=== PATIENT | female | born 1995 | race American Indian/Alaskan Native ===

== ENCOUNTER 2016-07-13 23:10 | Inpatient (IN) | payer MEDICAID ==
[2016-07-13] MEDS ORDERED: LACTATED RINGERS 1,000 ML IV ONE (23:37)
[2016-07-14 00:18] LABS: Bacteria,Urine 1+ /HPF (Negative); Bilirubin,Urine NEG (Negative); Blood,Urine NEG (Negative); Ketones,Urine 20 mg/dL (Negative); Leukocyte Esterase,Urine TR (Negative); Mucus,Urine 1+ /HPF; Nitrite,Urine NEG (Negative); Protein,Urine <15 mg/dL mg/dL (Negative)
[2016-07-14] MEDS ORDERED: BRETHINE ONE (01:18)
[2016-07-14] MEDS ORDERED: BRETHINE SUB-Q ONE (01:20)
--- NOTE | 2016-07-14 01:33 | Event Note ---
Date: 07/14/16 20 yo , edc 08/19/16 presented to L&D with c/o of contractions. PNC with [facility]. Pt noted to have Mutiple anomalies ( see Prenatals). Pt states she was told that patient had 50/50 chance of survival, but she is requesting that full resuscitation be performed. Per our Oil Well Shooter our NICU is on diversion. I have attempted to arrange transport [facility] but they refused to accept patient stating that they do not have a pediatric ENT. I spoke with both the product support sales representative and the ER OB physician- DR Cedillo. I also spoke with DR Carrizales, our Oil Well Shooter and asked her to reach out to other NICU' s to see if one wiil be willing to care for this baby. If she can find a nicu willing to care for this baby I will contact the ob doctor vanstone machine operator to effect maternal transfer. If we are unable to arrange transport we will deliver at [facility].
[2016-07-14 02:09] LABS: Basophils % (Auto) 0.2 % (0.0-1.8); Hematocrit 27.3 % (30.3-42.9); Hemoglobin 8.7 gm/dl (10.1-14.3); Mean Corpuscular HGB Conc 32 % (30-34); Mean Corpuscular Volume 77 fl (79-97); Platelet Count 184 K/mm3 (140-440); Red Blood Count 3.56 M/mm3 (3.65-5.03); Red Cell Distribution Width 13.6 % (13.2-15.2); White Blood Count 10.9 K/mm3 (4.5-11.0)
[2016-07-14 02:13] LABS: Mean Corpuscular Hemoglobin 25 pg (28-32)
[2016-07-14] MEDS: LACTATED RINGERS 1,000 ML IV SCH ×2 (02:43→12:05)
--- NOTE | 2016-07-14 03:30 | History and Physical Report ---
History of Present Illness Date of examination: 07/14/16 Date of admission: 07/14/16 01:50 Chief complaint: pt presented with c/o of contractions. PNC at [facility] Past History Past Medical History: no pertinent history Past Surgical History: no surgical history Family/Genetic History: none Social history: no significant social history - Obstetrical History Expected Date of Delivery: 08/19/16 Actual Gestation: 34 Week(s) 6 Day(s) : 2 Para: 1 Number of Living Children: 1 Medications and Allergies Allergies Allergy/AdvReac Type Severity Reaction Status Date / Time No Known Allergies Allergy Verified 03/28/16 10:29 Home Medications Medication Instructions Recorded Confirmed Last Taken Type Tablet 1 tab PO DAILY 12/28/15 03/28/16 03/28/16 History Nitrofurantoin Reno/M-Cryst 100 mg PO Q12HR #14 capsule 03/28/16 Unknown Rx [Macrobid CAP] Promethazine [Phenergan TAB] 25 mg PO Q6HR PRN #20 tab 03/28/16 Unknown Rx metroNIDAZOLE [Flagyl] 500 mg PO Q12HR #14 tab 03/28/16 Unknown Rx Active Meds: Active Medications Lactated Ringer's (Lactated Ringers) 1,000 mls @ 125 mls/hr IV DIRECT JUANCHO Last Admin: 07/14/16 02:43 Dose: 125 mls/hr Review of Systems All systems: negative Gastrointestinal: abdominal pain - Vital Signs Vital signs: Vital Signs Pulse BP 77 127/66 07/13/16 23:24 07/13/16 23:24 Temp Pulse Resp BP Pulse Ox 98.0 F 97 H 18 127/66 98 07/13/16 23:30 07/14/16 03:21 07/13/16 23:30 07/13/16 23:30 07/14/16 03:21 - Physical Exam Breasts: Positive: deferred Cardiovascular: Regular rate, Normal S1, Normal S2 Abdomen: Positive: normal appearance, soft, normal bowel sounds. Negative: distention, tenderness Vulva: both: normal Vagina: Positive: normal moisture. Negative: discharge Cervix: Negative: lesion, discharge Uterus: Positive: normal size, normal contour Adnexa: both: normal Anus/Rectum: Positive: normal perianal skin, heme negative. Negative: rectal mass, hemorrhoids Extremities: Deep Tendon Reflex Grade: Normal +2 - Obstetrical FHR: category 2 Uterine Contraction Monitor Mode: External Cervical Dilatation: 4 Cervical Effacement Percentage: 100 station: -2 Uterine Contraction Pattern: Irregular Uterine Tone Measurement Phase: Resting Uterine Contraction Intensity: Mild Results Result Diagrams: 07/14/16 01:45 Abnormal lab results 07/14/16 Range/Units 01:45 RBC 3.56 L (3.65-5.03) M/mm3 Hgb 8.7 L (10.1-14.3) gm/dl Hct 27.3 L (30.3-42.9) % MCV 77 L (79-97) fl MCH 25 L (28-32) pg Reno % (Auto) 9.1 H (0.0-7.3) % Reno # 1.0 H (0.0-0.8) K/mm3 All other labs normal. Assessment and Plan iup at 34 5/7 weeks, early labor. Fetus with multiple anomalies including large bilateral dysplasic kidneys, oligo, occipital neck mass, peicardial effusion and cystic hygroma Plan- our nicu is on diversion. We are attempting to arrange maternal transport of patient. but thus far have been unsuccessful. [facility] refused to accept transport. I have ask our Nicu Dr MACIAS to attempt to find a Nicu that will be able to care for this infant. I have not yet received any follow up on this request.
[2016-07-14] MEDS ORDERED: COLACE PO PRN (08:06)
[2016-07-14] MEDS ORDERED: MAGNESIUM SULFATE 4GM/100ML 100 ML IV ONE (08:06)
[2016-07-14] MEDS ORDERED: ZOFRAN IV PRN (08:06)
[2016-07-14] MEDS ORDERED: TYLENOL PO PRN (08:06)
[2016-07-14] MEDS ORDERED: AMBIEN PO PRN (08:06)
[2016-07-14] MEDS ORDERED: MYLICON PO PRN (08:06)
[2016-07-14] MEDS ORDERED: SODIUM CHLORIDE FLUSH SYRINGE 10 ML IV PRN (08:06)
[2016-07-14] MEDS ORDERED: MAGNESIUM SULFATE 40GM/1000ML 1,000 ML IV SCH (09:00)
[2016-07-14] MEDS ORDERED: LACTATED RINGERS 1,000 ML IV SCH (09:00)
[2016-07-14] MEDS ORDERED: PRENATAL VITAMIN PO SCH (10:00)
--- NOTE | 2016-07-14 10:07 | Ultrasound Report ---
BIOPHYSICAL PROFILE: INDICATION: well being. COMPARISON: None similar. TECHNIQUE: Transabdominal ultrasound with Doppler interrogation. 2 - breathing movements 2 - movements 2 - posture and tone 0 - Qualitative amniotic fluid volume 6 - TOTAL SCORE OF POSSIBLE 8 Heart Rate (bpm) 138
--- NOTE | 2016-07-14 10:14 | Ultrasound Report ---
OB ULTRASOUND FOLLOWUP INDICATION: growth, ZOE, position. COMPARISON: None similar. TECHNIQUE: Transabdominal grayscale ultrasound with Doppler interrogation. Gestation: Raymond Position: Cephalic Amniotic Fluid: Decreased (< 7 cm) ZOE = 2.6 cm Heart Rate: 137 BPM BPD: 10.4 cm HC: 38.9 cm AC: 39.4 cm FL: 6.1 cm = 31 w 6 d HC/AC Ratio: 0.99 Cephalic Index: 89.7 Estimated Weight: 4607 grams Clinical age = 34 w 6 d EDC: 08/19/2016 US Gest. Age = 31 w 6 d EDC: 09/09/2016 NOTE: hydrocephalus and polycystic kidneys noted. CONCLUSION: Single, live intrauterine gestation with ultrasound estimated age of 31 weeks and 6 days and EDC of 09/09/2016, currently in cephalic lie with details, as above. Hydrocephalus and polycystic kidneys noted. Please also correlate clinically for approximately 3 weeks discrepancy with the stated clinical age. Thank you for the opportunity to participate in this patient's care.
--- NOTE | 2016-07-14 10:28 | Ultrasound Report ---
ULTRASOUND OB VELOCIMETRY UMBILICAL ARTERY: HISTORY: growth, ZOE, position. COMPARISON: None similar at this institution. FINDINGS: Transabdominal imaging with spectral Doppler interrogation. 3 separate segments of the cord were evaluated. heart rate measures 137 beats per minute. Free loop S/D ratio in the examined loops are 2, 1.81 and 2.05 with average S/D ratio = 1.95. Normal waveform. Flow pattern is persistent. Free loop RI in the examined loops are 0.5, 0.45 and 0.51 with average RI= 0.49. Normal waveform. Flow pattern is persistent. CONCLUSION: Normal and persistent spectral waveforms are demonstrated throughout. The S/D ratio average measures 1.95. The resistive index average measures 0.49. Thank you for the opportunity to participate in this patient's care.
--- NOTE | 2016-07-14 15:24 | Consultation ---
History of Present Illness Consult date: 07/14/16 Requesting physician: CASSI SCOTT Reason for consult: vulvar trauma (H) History of present illness: 20 y/o BF FAITH 08/19/16- presenting with contractions - Cervical Exam at 4 cm. Contractions now spaced out on Mg. Significant History - [facility] US done 04/02/17 showed multiple anomalies Large Bilat Polycystic Ovaries Oligohydramnios Encephalocele Pericardial Effusion Patient was counseled and explained very poor prognosis at that time and offered termination at that time and patient never followed up with [facility] since initial consult done on 04/02/17 Today's US 07/14/16 Oligo - ZOE at 2.6 cm EFW at 4607 Hydrocephalus Polycystic kidneys Quad Screen Done at OB's office - Negative Ob History 2009 Term No med ds, surg, CDD, STD or allergies Abd gravid NT Ext Nt no edema Vag - 4 cm per ob Past History Past Medical History: no pertinent history Past Surgical History: no surgical history Family/Genetic History: none - Obstetrical History : 2 Medications and Allergies Allergies Allergy/AdvReac Type Severity Reaction Status Date / Time No Known Allergies Allergy Verified 03/28/16 10:29 Home Medications Medication Instructions Recorded Confirmed Last Taken Type Tablet 1 tab PO DAILY 12/28/15 07/14/16 07/13/16 10:00 History 1 Nitrofurantoin [place]/M-Cryst 100 mg PO Q12HR #14 capsule 03/28/16 07/14/16 Unknown Rx [Macrobid CAP] Promethazine [Phenergan TAB] 25 mg PO Q6HR PRN #20 tab 03/28/16 07/14/16 Unknown Rx metroNIDAZOLE [Flagyl] 500 mg PO Q12HR #14 tab 03/28/16 07/14/16 Unknown Rx Active Meds: Active Medications Acetaminophen (Tylenol) 650 mg PO Q4H PRN PRN Reason: Pain MILD(1-3)/Fever >100.5/CALERO Docusate Sodium (Colace) 100 mg PO Q12H PRN PRN Reason: Constipation Lactated Ringer's (Lactated Ringers) 1,000 mls @ 125 mls/hr IV DIRECT JUANCHO Last Admin: 07/14/16 12:05 Dose: 125 mls/hr Lactated Ringer's (Lactated Ringers) 1,000 mls @ 125 mls/hr IV DIRECT JUANCHO Magnesium Sulfate (Magnesium Sulfate 40gm/1000ml) 1,000 mls @ 50 mls/hr IV DIRECT JUANCHO PRN Reason: 2 GM/HR Multivitamins/Iron/Calcium ( Vitamin) 1 each PO QDAY JUANCHO Last Admin: 07/14/16 12:47 Dose: 1 each Ondansetron HCl (Zofran) 4 mg IV Q6H PRN PRN Reason: Nausea And Vomiting Simethicone (Mylicon) 80 mg PO Q6H PRN PRN Reason: Gas pain Sodium Chloride (Sodium Chloride Flush Syringe 10 Ml) 10 ml IV PRN PRN PRN Reason: LINE FLUSH Zolpidem Tartrate (Ambien) 10 mg PO ONCE PRN PRN Reason: Sleep - Vital Signs Vital signs: Vital Signs Pulse BP 77 127/66 07/13/16 23:24 07/13/16 23:24 Temp Pulse Resp BP Pulse Ox 98.2 F 77 18 117/63 92 07/14/16 12:00 07/14/16 15:13 07/14/16 12:00 07/14/16 15:00 07/14/16 15:13 Results Result Diagrams: 07/14/16 01:45 Abnormal lab results 07/14/16 Range/Units 01:45 RBC 3.56 L (3.65-5.03) M/mm3 Hgb 8.7 L (10.1-14.3) gm/dl Hct 27.3 L (30.3-42.9) % MCV 77 L (79-97) fl MCH 25 L (28-32) pg Dup[place] % (Auto) 9.1 H (0.0-7.3) % Dup[place] # 1.0 H (0.0-0.8) K/mm3 All other labs normal. Assessment and Plan Impression: 1. Raymond IUP at 35 0/7 weeks 2. PTL 3. 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 Oligohydramnios 5. Anemia 6. Macrosomia - (Disproportionate with Increased Head and body Circumference) Recommendations: 1. Discussed in detail with patient and FOC - and explained poor prognosis due to multiple anomalies listed above. Increased Risk for morbidity/ mortality (physical and mental handicaps or demise) regardless of intervention or NICU intervention after . 2. Patient wants everything done. 3. Iron for anemia (H/H at 8.01/22) 4. NICU Consult - In progress see note by OB 5. Steroids 6. Will need ECHO after 7. Discussed with Dr. Chin
[2016-07-14] MEDS ORDERED: NACL 0.9% 500 ML 500 ML IV SCH (16:05)
[2016-07-14] MEDS ORDERED: BENADRYL PO PRN (16:07)
[2016-07-14] MEDS ORDERED: CELESTONE SOLUSPAN IM SCH (17:00)
--- NOTE | 2016-07-14 20:19 | Event Note ---
Date: 07/14/16 pt was seen by perinatologist. pt is to receive steroids and plan for delivery tomorrow when NICU has availability. Two units of blood to be transfused this pm. EFW =4000 grams, Andria =2. Delivery will be by c/s because patient wants all resuscitative measures performed despite the prognosis.
--- NOTE | 2016-07-14 21:19 | Event Note ---
Date: 07/14/16 (HD#2 PT contractions and muultiple anomalies ) This is a 20 yo at 35 weeks presented to [facility] at 4 cm yesterday. Patient is patient is private patient is part of [facility]. Dr. Reji Barreto covering for our service for this weekend. I was informed that this patient was here and stable s/p BTM and Mag for transfer to a facility with resources to care for the baby. It was recommended that this baby when delivered be delivered via [facility]. She was also given 2 U blood for anemia. Prior to arrival l I spoke with Vivienne ( Director [facility]) and ASTRONOMY INSTRUCTOR ( Dr. Garza after all infor bhupinder presented and patietn desiring all to be done for this baby best path was to transfer to facility able to care for the baby. I called Dr. Rivera BUNDLE SHAKER Attending at [facility] and currently arranging transfer to [facility]. Patient was counseled about possible transfer with , sister and nephew currently in room. All family is in agreement in room. Patient is aware we have similar resources as [facility] and there are no additional specialized care besides staffing. Patient is aware of dismal outcome. Patient lying in bed sitting up in no distress VSS Mag on cat 1 strip with no contractions deferred pelvic exam ( until confirmation of transfer) CVS: RRR s1s2 Lungs; CTA no wheezes no crackles abd: + gravid vertex >4000 g ( see report) BPP 6/8 ( off for fluid ZOE 2.6cm)
[2016-07-14 22:40] VITALS: BP 121/56
== END 2016-07-14 23:04 | disposition short-term general hospital (02) | DRG 781 ==
LOC: TRG 23:10 → LD 23:11 → TRG 07-14 01:50
PROVIDERS: ADMIT Obstetrics & Gynecology; ATTEND Obstetrics & Gynecology
PROC: 30233N1 Transfusion of Nonautologous Red Blood Cells into Peripheral Vein, Percutaneous Approach (ICD-10-PCS; principal; 2016-07-14)
DX: O35.0XX0 Maternal care for (suspected) central nervous system malformation in fetus, not applicable or unspecified (principal); O99.013 Anemia complicating pregnancy, third trimester; O35.8XX0 Maternal care for other (suspected) fetal abnormality and damage, not applicable or unspecified; O36.63X0 Maternal care for excessive fetal growth, third trimester, not applicable or unspecified; O33.6XX0 Maternal care for disproportion due to hydrocephalic fetus, not applicable or unspecified; O41.03X0 Oligohydramnios, third trimester, not applicable or unspecified; Z3A.34 34 weeks gestation of pregnancy; Q61.3 Polycystic kidney, unspecified
CPT/HCPCS: 36415; 76816; 76819; 76820; 81001; 83735; 85025; 86850; 86900; 86901; 86920; J0702; J3105; J3475; J7040; J7120; P9016

== ENCOUNTER 2018-01-09 18:37 | Outpatient (CLI) | payer BC ==
[2018-01-09 19:32] VITALS: BP 121/58
[2018-01-09 19:59] LABS: Bacteria,Urine 1+ /HPF (Negative); Bilirubin,Urine NEG (Negative); Blood,Urine NEG (Negative); Color,Urine Yellow (Yellow); Mucus,Urine FEW /HPF; Protein,Urine <15 mg/dL mg/dL (Negative)
[2018-01-09] MEDS ORDERED: LACTATED RINGERS 1,000 ML IV ONE (20:00)
== END 2018-01-09 20:42 | disposition home or self-care (01) ==
LOC: TRG 18:37
PROVIDERS: ATTEND Obstetrics & Gynecology
DX: O47.03 False labor before 37 completed weeks of gestation, third trimester (principal); Z3A.35 35 weeks gestation of pregnancy
CPT/HCPCS: 59025; 81001

== ENCOUNTER 2018-07-13 17:01 | Emergency (ER) | payer BC, MEDICARE ==
[2018-07-13 17:09] VITALS: BP 120/65
[2018-07-13 17:46] LABS: Hematocrit 34.8 % (30.3-42.9); Hemoglobin 11.2 gm/dl (10.1-14.3); Mean Corpuscular HGB Conc 32 % (30-34); Mean Corpuscular Volume 81 fl (79-97); Platelet Count 223 K/mm3 (140-440); Red Cell Distribution Width 14.3 % (13.2-15.2)
--- NOTE | 2018-07-13 17:57 | Emergency Department Report ---
ED Female HPI - General Chief complaint: Vaginal Bleeding Stated complaint: /HEAVY BLEEDING Time Seen by Provider: 07/13/18 17:26 Source: patient Mode of arrival: Ambulatory Limitations: No Limitations - History of Present Illness Initial comments: This is a 22-year-old female who presents to ED complaining of vaginal bleeding that started this morning. Patient states that about 4 days ago she took a test at home that was positive. She describes last menstrual period as 04/30/2018. Patient states she went to bathroom while she was at work and noticed the bleeding. She states. She has not seen her OB for this pregn nuzhat. She denies fevers/chills/dizziness/abdominal pain/pelvic pain/nausea vomiting chest pain - Related Data Home Medications Medication Instructions Recorded Confirmed Last Taken Tablet 1 tab PO DAILY 12/28/15 02/11/18 02/10/18 09:00 1 Previous Rx's Medication Instructions Recorded Last Taken Type Ferrous Sulfate 325 mg PO BID #60 tablet. 02/12/18 Unknown Rx Ibuprofen [Motrin] 600 mg PO Q8H PRN #30 tablet 02/12/18 Unknown Rx oxyCODONE /ACETAMINOPHEN [Percocet 1 tab PO Q6HR PRN #30 tablet 02/12/18 Unknown Rx 5/325] Pnv No.95/Ferrous Fum/Folic AC 1 each PO DAILY #40 tablet 07/13/18 Unknown Rx [Prenavite Tablet] Allergies Allergy/AdvReac Type Severity Reaction Status Date / Time No Known Allergies Allergy Verified 02/11/18 08:28 ED Review of Systems ROS: Stated complaint: /HEAVY BLEEDING Other details as noted in HPI Constitutional: denies: chills, fever Eyes: denies: eye pain, eye discharge, vision change ENT: denies: ear pain, throat pain Respiratory: denies: cough, shortness of breath, wheezing Cardiovascular: denies: chest pain, palpitations Endocrine: no symptoms reported Gastrointestinal: denies: abdominal pain, nausea, diarrhea Genitourinary: denies: urgency, dysuria, discharge Musculoskeletal: denies: back pain, joint swelling, arthralgia Skin: denies: rash, lesions Neurological: denies: headache, weakness, paresthesias Psychiatric: denies: anxiety, depression Hematological/Lymphatic: denies: easy bleeding, easy bruising ED Past Medical Hx - Past Medical History Previous Medical History?: No Hx Hypertension: No Hx Congestive Heart Failure: No Hx Diabetes: No Hx Deep Vein Thrombosis: No Hx Renal Disease: No Hx Sickle Cell Disease: No Hx Seizures: No Hx Asthma: No Hx COPD: No Hx HIV: No - Surgical History Past Surgical History?: No - Social History Smoking Status: Never Smoker Substance Use Type: None - Medications Home Medications: Home Medications Medication Instructions Recorded Confirmed Last Taken Type Tablet 1 tab PO DAILY 12/28/15 02/11/18 02/10/18 09:00 History 1 Ferrous Sulfate 325 mg PO BID #60 tablet. 02/12/18 Unknown Rx Ibuprofen [Motrin] 600 mg PO Q8H PRN #30 tablet 02/12/18 Unknown Rx oxyCODONE /ACETAMINOPHEN [Percocet 1 tab PO Q6HR PRN #30 tablet 02/12/18 Unknown Rx 5/325] Pnv No.95/Ferrous Fum/Folic AC 1 each PO DAILY #40 tablet 07/13/18 Unknown Rx [Prenavite Tablet] ED Physical Exam - General Limitations: No Limitations General appearance: alert, in no apparent distress - Head Head exam: Present: atraumatic, normocephalic - Eye Eye exam: Present: normal appearance - ENT ENT exam: Present: mucous membranes moist - Neck Neck exam: Present: normal inspection - Respiratory Respiratory exam: Present: normal lung sounds bilaterally. Absent: respiratory distress - Cardiovascular Cardiovascular Exam: Present: regular rate, normal rhythm. Absent: systolic murmur, diastolic murmur, rubs, gallop - GI/Abdominal GI/Abdominal exam: Present: soft, normal bowel sounds - Extremities Exam Extremities exam: Present: normal inspection - Back Exam Back exam: Present: normal inspection - Neurological Exam Neurological exam: Present: alert, oriented X3 - Psychiatric Psychiatric exam: Present: normal affect, normal mood - Skin Skin exam: Present: warm, dry, intact, normal color. Absent: rash ED Course Vital Signs 07/13/18 17:04 Temperature 98.1 F Pulse Rate 89 Respiratory 16 Rate Blood Pressure 120/65 O2 Sat by Pulse 100 Oximetry ED Medical Decision Making - Lab Data Result diagrams: 07/13/18 17:29 07/13/18 17:29 - Radiology Data Radiology results: report reviewed, image reviewed FINAL REPORT EXAM: US OB lt; = 14 WEEKS FETUS HISTORY: vag bleed TECHNIQUE: Real-time sonography was performed of the gravid uterus transabdominally and images are submitted for interpretation. PRIORS: None. FINDINGS: The uterus appears normal and has a grossly normal appearing gestational sac. There is a normal appearing pole measuring 0.72 centimeters for an estimated gestational age of 6 weeks 4 days. A normal-appearing yolk sac is identified. The heart is beating at a rate of 133 beats per minute. The right ovary was not visualized. The left ovary appears normal measuring 2.0 x 1.6 x 1.3 cm. IMPRESSION: Single live intrauterine gestation, estimated gestational age 6 weeks 4 days for an estimated confinement of 03/04/2019. Transcribed By: NERISSA Dictated By: KYLE JONAS MD Electronically Authenticated By: KYLE JONAS MD Signed Date/Time: 07/13/181937 - Medical Decision Making 22-year-old female presents to ED with threatened ED course: Pt received ultra sound, CBC, urinalysis, test and quantitative ED All labs within normal limits, quantitative elevated matching gestation age Ultrasound shows single intrauterine measuring 6 weeks 4 days with a heartbeat of 133 bpm. See reported above Vital signs normalized patient is in no acute distress. I discussed with the patient if follow-up with her INDIVIDUAL PENSION ADVISER. I discussed all labs and ultrasound findings with the patient. I discussed with the patient that he if bleeding worsens or new symptoms develop to return to ED immediately Critical care attestation.: If time is entered above; I have spent that time in minutes in the direct care of this critically ill patient, excluding procedure time. ED Disposition Clinical Impression: Threatened , Normal intrauterine on ultrasound Disposition: -01 TO HOME OR SELFCARE Is pt being admited?: No Does the pt Need Aspirin: No Condition: Stable Instructions: Threatened Miscarriage (ED), (ED) Additional Instructions: Make sure to follow up with the INDIVIDUAL PENSION ADVISER as discussed. Take all your medications as you've been prescribed. If you have any worsening symptoms or develop new symptoms please return to ED immediately. Prescriptions: Pnv No.95/Ferrous Fum/Folic AC [Prenavite Tablet] 1 each PO DAILY #40 tablet Referrals: JILL HAWLEY MD [Primary Care Provider] - 3-5 Days LIANNE PEDROZA MD [Referring] - 3-5 Days CHEO PEDROZA MD [Referring] - 3-5 Days [facility] [Provider Group] - 3-5 Days Forms: Accompanied Note, Work/School Release Form(ED) Time of Disposition: 19:45
[2018-07-13 18:02] LABS: BUN/Creatinine Ratio 15; Blood Urea Nitrogen 9 mg/dL (7-17); Calcium 9.3 mg/dL (8.4-10.2); Hemolysis Index 3
[2018-07-13 18:08] LABS: Bilirubin,Urine NEG (Negative); Blood,Urine MOD (Negative); Color,Urine Yellow (Yellow); HCG Qualitative,Urine Positive (Negative); Mucus,Urine FEW /HPF; Protein,Urine <15 mg/dL mg/dL (Negative)
--- NOTE | 2018-07-13 19:37 | Ultrasound Report ---
FINAL REPORT EXAM: US OB TRANSVAGINAL HISTORY: vag bleed TECHNIQUE: Real-time sonography was performed of the gravid uterus endovaginally and images are subm itted for interpretation. PRIORS: None. FINDINGS: The uterus appears normal and has a grossly normal appearing gestational sac. There is a normal appea ring pole measuring 0.72 centimeters for an estimated gestational age of 6 weeks 4 days. A norm al-appearing yolk sac is identified. The heart is beating at a rate of 133 beats per minute. The right ovary was not visualized. The left ovary appears normal measuring 2.0 x 1.6 x 1.3 cm. IMPRESSION: Single live intrauterine gestation, estimated gestational age 6 weeks 4 days for an estimated confine ment of 03/04/2019.
--- NOTE | 2018-07-13 19:38 | Ultrasound Report ---
FINAL REPORT EXAM: US OB <= 14 WEEKS FETUS HISTORY: vag bleed TECHNIQUE: Real-time sonography was performed of the gravid uterus transabdominally and images are s ubmitted for interpretation. PRIORS: None. FINDINGS: The uterus appears normal and has a grossly normal appearing gestational sac. There is a normal appea ring pole measuring 0.72 centimeters for an estimated gestational age of 6 weeks 4 days. A norm al-appearing yolk sac is identified. The heart is beating at a rate of 133 beats per minute. The right ovary was not visualized. The left ovary appears normal measuring 2.0 x 1.6 x 1.3 cm. IMPRESSION: Single live intrauterine gestation, estimated gestational age 6 weeks 4 days for an estimated confine ment of 03/04/2019.
== END 2018-07-13 19:53 | disposition home or self-care (01) ==
LOC: ED 17:01
DX: Z3A.01 Less than 8 weeks gestation of pregnancy (principal)
CPT/HCPCS: 36415; 76801; 76817; 80048; 81001; 81025; 84702; 85027; 86900; 86901

== ENCOUNTER 2018-07-15 20:37 | Emergency (ER) | payer BC ==
[2018-07-15 21:07] LABS: Basophils # (Auto) 0.1 K/mm3 (0.0-0.1); Basophils % (Auto) 1.3 % (0.0-1.8); Eosinophils # (Auto) 0.1 K/mm3 (0.0-0.4); Eosinophils % (Auto) 1.5 % (0.0-4.3); Hematocrit 33.4 % (30.3-42.9); Hemoglobin 10.8 gm/dl (10.1-14.3); Mean Corpuscular HGB Conc 32 % (30-34); Mean Corpuscular Volume 82 fl (79-97); Monocytes # (Auto) 0.6 K/mm3 (0.0-0.8); Monocytes % (Auto) 7.5 % (0.0-7.3); Platelet Count 227 K/mm3 (140-440); Red Blood Count 4.05 M/mm3 (3.65-5.03)
[2018-07-15] MEDS ORDERED: TYLENOL PO ONE (21:49)
--- NOTE | 2018-07-15 21:53 | Emergency Department Report ---
ED Female HPI - General Chief complaint: Vaginal Bleeding Stated complaint: 6 WEEKS PREG BLEEDING Time Seen by Provider: 07/15/18 21:32 Source: patient Mode of arrival: Ambulatory Limitations: No Limitations - History of Present Illness Initial comments: 22-year-old female with no significant past medical history presents to Hospital complaining of and continued vaginal bleeding for the past 2 days. Patient was here for the same on July 13. 8 day time patient is found to be Rh+, had a quantitative and a 2000s, and ultrasound showed a 6 week 4 day IUP. Patient returns today, the bleeding has increased slightly. She used 3-4 pads today and an past either a clot or tissue in the toilet today. She also reports intermittent 9/10 cramping suprapubic pain that feels like contractions. Patient does not appear to be in any acute distress and looks very comfortable at the bedside. She has not yet initiated care. This is her fourth , she has 2 living children, and had a premature delivery at 8 months however, the baby did not survive. - Related Data Home Medications Medication Instructions Recorded Confirmed Last Taken Tablet 1 tab PO DAILY 12/28/15 02/11/18 02/10/18 09:00 1 Previous Rx's Medication Instructions Recorded Last Taken Type Ferrous Sulfate 325 mg PO BID #60 tablet. 02/12/18 Unknown Rx Ibuprofen [Motrin] 600 mg PO Q8H PRN #30 tablet 02/12/18 Unknown Rx oxyCODONE /ACETAMINOPHEN [Percocet 1 tab PO Q6HR PRN #30 tablet 02/12/18 Unknown Rx 5/325] Pnv No.95/Ferrous Fum/Folic AC 1 each PO DAILY #40 tablet 07/13/18 Unknown Rx [Prenavite Tablet] HYDROcodone/APAP 5-325 [[place] 1 each PO Q6HR PRN #20 tablet 07/15/18 Unknown Rx 5/325] Ibuprofen [Motrin] 800 mg PO Q8HR PRN #30 tablet 07/15/18 Unknown Rx Allergies Allergy/AdvReac Type Severity Reaction Status Date / Time No Known Allergies Allergy Verified 02/11/18 08:28 ED Review of Systems ROS: Stated complaint: 6 WEEKS PREG BLEEDING Other details as noted in HPI Comment: All other systems reviewed and negative ED Past Medical Hx - Past Medical History Previous Medical History?: No Hx Hypertension: No Hx Congestive Heart Failure: No Hx Diabetes: No Hx Deep Vein Thrombosis: No Hx Renal Disease: No Hx Sickle Cell Disease: No Hx Seizures: No Hx Asthma: No Hx COPD: No Hx HIV: No - Surgical History Past Surgical History?: No - Social History Smoking Status: Never Smoker Substance Use Type: None - Medications Home Medications: Home Medications Medication Instructions Recorded Confirmed Last Taken Type Tablet 1 tab PO DAILY 12/28/15 02/11/18 02/10/18 09:00 History 1 Ferrous Sulfate 325 mg PO BID #60 tablet. 02/12/18 Unknown Rx Ibuprofen [Motrin] 600 mg PO Q8H PRN #30 tablet 02/12/18 Unknown Rx oxyCODONE /ACETAMINOPHEN [Percocet 1 tab PO Q6HR PRN #30 tablet 02/12/18 Unknown Rx 5/325] Pnv No.95/Ferrous Fum/Folic AC 1 each PO DAILY #40 tablet 07/13/18 Unknown Rx [Prenavite Tablet] HYDROcodone/APAP 5-325 [Candia 1 each PO Q6HR PRN #20 tablet 07/15/18 Unknown Rx 5/325] Ibuprofen [Motrin] 800 mg PO Q8HR PRN #30 tablet 07/15/18 Unknown Rx ED Physical Exam - General Limitations: No Limitations - Other Other exam information: General: No limitations, patient is alert in no acute distress Head exam: Atraumatic, normocephalic Eyes exam: Normal appearance, pupils equal reactive to light, extraocular movements intact ENT: Moist mucous membrane Neck exam: Normal inspection, full range of motion, no meningismus nontender Respiratory exam: Clear to auscultation bilateral, no wheezes, rales, crackles Cardiovascular: Normal rate and rhythm, normal heart sounds Abdomen: Soft, nondistended, mild suprapubic tenderness, with normal bowel sounds, no rebound, or guarding Extremity: Full range of motion normal inspection no deformity Back: Normal Inspection, full range of motion, no tenderness Neurologic: Alert, oriented x3, cranial nerves intact, no motor or sensory deficit Psychiatric: normal affect, normal mood Skin: Warm, dry, intact ED Course Vital Signs 07/15/18 20:44 Temperature 98.9 F Pulse Rate 82 Respiratory 20 Rate Blood Pressure 113/68 O2 Sat by Pulse 99 Oximetry - Consultations Consultation #1: 07/15/18 23:[address] 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 Recommend bleeding precautions, pain management, and follow-up ED Medical Decision Making - Lab Data Result diagrams: 07/15/18 20:53 Lab Results 07/15/18 07/15/18 Range/Units 20:53 20:53 WBC 7.8 (4.5-11.0) K/mm3 RBC 4.05 (3.65-5.03) M/mm3 Hgb 10.8 (10.1-14.3) gm/dl Hct 33.4 (30.3-42.9) % MCV 82 (79-97) fl MCH 27 L (28-32) pg MCHC 32 (30-34) % RDW 14.0 (13.2-15.2) % Plt Count 227 (140-440) K/mm3 Lymph % (Auto) 39.0 H (13.4-35.0) % [place] % (Auto) 7.5 H (0.0-7.3) % Eos % (Auto) 1.5 (0.0-4.3) % Baso % (Auto) 1.3 (0.0-1.8) % Lymph # 3.0 (1.2-5.4) K/mm3 [place] # 0.6 (0.0-0.8) K/mm3 Eos # 0.1 (0.0-0.4) K/mm3 Baso # 0.1 (0.0-0.1) K/mm3 Seg Neutrophils % 50.7 (40.0-70.0) % Seg Neutrophils # 4.0 (1.8-7.7) K/mm3 HCG, Quant 1557 H (0-4) mIU/mL - Radiology Data Radiology results: report reviewed FINAL REPORT PROCEDURE: US OB TRANSVAGINAL TECHNIQUE: Real-time transvaginal sonography of the uterus, placenta, amniotic fluid, adnexa, and fetus was performed with image documentation. Measurements were obtained to determine age/size. M-mode Doppler was used to document heartbeat. CPT 56054 HISTORY: vaginal bleeding COMPARISON: No prior studies are available for comparison. FINDINGS: UTERUS Size: 9.1 x 4.9 x 5.3 cm. Endometrial thickness: 18 mm. Orientation: anteverted. Cervix: Normal. Fibroids/masses: None. There is no evidence of any intrauterine gestation RIGHT Ovary: 1.5 x 1.4 x 1.4 centimeters cm. Appearance: Normal. LEFT Ovary: Not visualized . Pelvic fluid: None. IMPRESSION: Previously noted intrauterine gestation is not visualized on the current study consistent with interval . FINAL REPORT PROCEDURE: US OB gt; = 14 WEEKS FETUS TECHNIQUE: Real-time transabdominal sonography in multiple planes of pelvis was performed with image documentation. This examination was performed without Doppler. Vascular abnormalities, including ovarian torsion, will not be detectable without Doppler evaluation. CPT 43428 HISTORY: vaginal bleeding COMPARISON: 07/13/2018 FINDINGS: UTERUS Size: 9.1 x 4.9 x 5.3 cm. Endometrial thickness: 18 mm. Orientation: anteverted. Cervix: Normal. Fibroids/masses: None. There is no evidence of any intrauterine gestation RIGHT Ovary: 1.5 x 1.4 x 1.4 centimeters cm. Appearance: Normal. LEFT Ovary: Not visualized . Pelvic fluid: None. IMPRESSION: Previously noted intrauterine gestation is not visualized on the current study consistent with interval . - Medical Decision Making Patient presents to the ED with continued vaginal bleeding. Ultrasound and lab workup confirms miscarriage. Follow-up will be provided. - Differential Diagnosis miscarriage, threatened miscarriage Critical Care Time: No Critical care attestation.: If time is entered above; I have spent that time in minutes in the direct care of this critically ill patient, excluding procedure time. ED Disposition Clinical Impression: Miscarriage Disposition: DC-01 TO HOME OR SELFCARE Is pt being admited?: No Does the pt Need Aspirin: No Condition: Stable Instructions: Spontaneous Miscarriage (ED) Additional Instructions: Take the medication as prescribed. Follow up with a [employer] doctor. Return if symptoms worsen as indicated by your discharge instructions Prescriptions: HYDROcodone/APAP 5-325 [Candia 5/325] 1 each PO Q6HR PRN #20 tablet PRN Reason: Pain , Severe (7-10) Ibuprofen [Motrin] 800 mg PO Q8HR PRN #30 tablet PRN Reason: Pain, Moderate (4-6) Referrals: ANTONIO NG MD [Primary Care Provider] - 2-3 Days (pattern and chain maker) MADISON SKY MD [Staff Physician] - 2-3 Days Time of Disposition: 23:59
--- NOTE | 2018-07-15 23:35 | Ultrasound Report ---
FINAL REPORT PROCEDURE: US OB >= 14 WEEKS FETUS TECHNIQUE: Real-time transabdominal sonography in multiple planes of pelvis was performed with image documentation. This examination was performed without Doppler. Vascular abnormalities, including ova dilan torsion, will not be detectable without Doppler evaluation. CPT 42857 HISTORY: vaginal bleeding COMPARISON: 07/13/2018 FINDINGS: UTERUS Size: 9.1 x 4.9 x 5.3 cm. Endometrial thickness: 18 mm. Orientation: anteverted. Cervix: Normal. Fibroids/masses: None. There is no evidence of any intrauterine gestation RIGHT Ovary: 1.5 x 1.4 x 1.4 centimeters cm. Appearance: Normal. LEFT Ovary: Not visualized . Pelvic fluid: None. IMPRESSION: Previously noted intrauterine gestation is not visualized on the current study consistent with interv al .
--- NOTE | 2018-07-15 23:35 | Ultrasound Report ---
FINAL REPORT PROCEDURE: US OB TRANSVAGINAL TECHNIQUE: Real-time transvaginal sonography of the uterus, placenta, amniotic fluid, adnexa, and fe tus was performed with image documentation. Measurements were obtained to determine age/size. M -mode Doppler was used to document heartbeat. CPT 60522 HISTORY: vaginal bleeding COMPARISON: No prior studies are available for comparison. FINDINGS: UTERUS Size: 9.1 x 4.9 x 5.3 cm. Endometrial thickness: 18 mm. Orientation: anteverted. Cervix: Normal. Fibroids/masses: None. There is no evidence of any intrauterine gestation RIGHT Ovary: 1.5 x 1.4 x 1.4 centimeters cm. Appearance: Normal. LEFT Ovary: Not visualized . Pelvic fluid: None. IMPRESSION: Previously noted intrauterine gestation is not visualized on the current study consistent with interv al . IMPRESSION:
[2018-07-15] MEDS ORDERED: TORADOL IM ONE (23:55)
[2018-07-16 00:06] VITALS: BP 124/71
== END 2018-07-16 00:32 | disposition home or self-care (01) ==
LOC: ED 20:37
DX: O03.9 Complete or unspecified spontaneous abortion without complication (principal); Z3A.01 Less than 8 weeks gestation of pregnancy
CPT/HCPCS: 36415; 76801; 76817; 84702; 85025; 96372; 99284; J1885; 76805

== ENCOUNTER 2020-08-01 19:13 | Emergency (ER) | payer BC, MEDICARE, OTHER ==
[2020-08-01 19:58] VITALS: BP 107/60
== END 2020-08-01 22:30 | disposition home or self-care (01) ==
LOC: ED 19:13
DX: R19.7 Diarrhea, unspecified (principal); Z53.21 Procedure and treatment not carried out due to patient leaving prior to being seen by health care provider

== ENCOUNTER 2021-01-19 08:01 | Emergency (ER) | payer OTHER ==
[2021-01-19 08:57] LABS: Bilirubin,Urine NEG (Negative); Blood,Urine MOD (Negative); Color,Urine Yellow (Yellow); Mucus,Urine 2+ /HPF; Protein,Urine <15 mg/dL mg/dL (Negative); Urobilinogen,Urine < 2.0 mg/dL (<2.0)
[2021-01-19 09:00] LABS: HCG Qualitative,Urine Negative (Negative)
[2021-01-19 11:17] LABS: Hematocrit 32.5 % (30.3-42.9); Hemoglobin 10.8 gm/dl (10.1-14.3); Mean Corpuscular HGB Conc 33 % (30-34); Mean Corpuscular Volume 83 fl (79-97); Platelet Count 181 K/mm3 (140-440); Red Blood Count 3.91 M/mm3 (3.65-5.03)
[2021-01-19 11:31] LABS: Blood Urea Nitrogen 9 mg/dL (7-17); Calcium 9.2 mg/dL (8.4-10.2); Hemolysis Index 8
[2021-01-19 11:42] LABS: BUN/Creatinine Ratio 18
--- NOTE | 2021-01-19 12:24 | Emergency Department Report ---
ED Female HPI - General Chief complaint: Vaginal Bleeding Stated complaint: VAGINAL BLEED 3 DAYS WITH CLOTS Time Seen by Provider: 01/19/21 10:26 Source: patient Mode of arrival: Ambulatory Limitations: No Limitations - History of Present Illness Initial comments: 25-year-old female presents to the emergency room complaining of 3 days of heavy menstrual bleeding which started on Thursday. She states that the heavy menstrual bleeding is associated with clots. Today the bleeding has decreased she used 3 pads and the bleeding is light with no clots. LMP December 30. She reports a history of heavy menstrual bleeding in July 2020. She was seen by an [employer] SUPERVIS[employer] doctor. She denies abdominal pain nausea vomiting no urinary symptoms. She denies . Patient in no acute distress MD Complaint: vaginal bleeding -: days(s) (3) Severity scale (0 -10): 0 Worsens with: none Are you Now?: No Associated Symptoms: denies: vaginal discharge, vaginal bleeding, abdominal pain, nausea/vomiting, fever/chills, headaches, loss of appetite, dysuria, hematuria, rash, seizure, shortness of breath, syncope, weakness, other - Related Data Home Medications Medication Instructions Recorded Confirmed Last Taken Tablet 1 tab PO DAILY 12/28/15 02/11/18 02/10/18 09:00 1 Previous Rx's Medication Instructions Recorded Last Taken Type Ferrous Sulfate 325 mg PO BID #60 tablet. 02/12/18 Unknown Rx Ibuprofen [Motrin] 600 mg PO Q8H PRN #30 tablet 02/12/18 Unknown Rx oxyCODONE /ACETAMINOPHEN [Percocet 1 tab PO Q6HR PRN #30 tablet 02/12/18 Unknown Rx 5/325] Pnv No.95/Ferrous Fum/Folic AC 1 each PO DAILY #40 tablet 07/13/18 Unknown Rx [Prenavite Tablet] HYDROcodone/APAP 5-325 [[place] 1 each PO Q6HR PRN #20 tablet 07/15/18 Unknown Rx 5/325] Ibuprofen [Motrin] 800 mg PO Q8HR PRN #30 tablet 07/15/18 Unknown Rx Ketorolac [Toradol] 10 mg PO Q8H PRN #14 tablet 08/01/20 Unknown Rx Ondansetron HCl [Zofran] 4 mg PO Q8HR PRN #20 tablet 08/01/20 Unknown Rx Allergies Allergy/AdvReac Type Severity Reaction Status Date / Time No Known Allergies Allergy Verified 01/19/21 08:16 ED Review of Systems ROS: Stated complaint: VAGINAL BLEED 3 DAYS WITH CLOTS Other details as noted in HPI Comment: All other systems reviewed and negative Constitutional: no symptoms reported Respiratory: no symptoms reported. denies: cough, SOB with exertion Cardiovascular: denies: dyspnea on exertion, edema, syncope, paroxysmal no cturnal dyspnea Endocrine: denies: see HPI, excessive sweating, flushing, intolerance to cold, intolerance to heat Gastrointestinal: denies: abdominal pain, nausea, vomiting, diarrhea, constipation, hematemesis, melena, hematochezia Genitourinary: denies: urgency, hematuria, discharge Musculoskeletal: denies: back pain Skin: denies: rash, change in color, change in hair/nails Neurological: denies: headache, weakness Psychiatric: denies: anxiety Hematological/Lymphatic: denies: easy bleeding ED Past Medical Hx - Past Medical History Previous Medical History?: No Hx Hypertension: No Hx Congestive Heart Failure: No Hx Diabetes: No Hx Deep Vein Thrombosis: No Hx Renal Disease: No Hx Sickle Cell Disease: No Hx Seizures: No Hx Asthma: No Hx COPD: No Hx HIV: No - Surgical History Past Surgical History?: No - Social History Smoking Status: Never Smoker Substance Use Type: None - Medications Home Medications: Home Medications Medication Instructions Recorded Confirmed Last Taken Type Tablet 1 tab PO DAILY 12/28/15 02/11/18 02/10/18 09:00 History 1 Ferrous Sulfate 325 mg PO BID #60 tablet. 02/12/18 Unknown Rx Ibuprofen [Motrin] 600 mg PO Q8H PRN #30 tablet 02/12/18 Unknown Rx oxyCODONE /ACETAMINOPHEN [Percocet 1 tab PO Q6HR PRN #30 tablet 02/12/18 Unknown Rx 5/325] Pnv No.95/Ferrous Fum/Folic AC 1 each PO DAILY #40 tablet 07/13/18 Unknown Rx [Prenavite Tablet] HYDROcodone/APAP 5-325 [[place] 1 each PO Q6HR PRN #20 tablet 07/15/18 Unknown Rx 5/325] Ibuprofen [Motrin] 800 mg PO Q8HR PRN #30 tablet 07/15/18 Unknown Rx Ketorolac [Toradol] 10 mg PO Q8H PRN #14 tablet 08/01/20 Unknown Rx Ondansetron HCl [Zofran] 4 mg PO Q8HR PRN #20 tablet 08/01/20 Unknown Rx ED Physical Exam - General Limitations: No Limitations General appearance: alert, in no apparent distress - Head Head exam: Present: atraumatic - Eye Eye exam: Present: normal appearance - ENT ENT exam: Present: normal exam, mucous membranes moist - Neck Neck exam: Present: normal inspection - Respiratory Respiratory exam: Present: normal lung sounds bilaterally. Absent: respiratory distress, wheezes, rales, rhonchi - Cardiovascular Cardiovascular Exam: Present: regular rate, normal heart sounds - GI/Abdominal GI/Abdominal exam: Present: soft, normal bowel sounds. Absent: distended, tenderness, guarding, rebound - Extremities Exam Extremities exam: Present: normal inspection - Back Exam Back exam: Present: normal inspection. Absent: CVA tenderness (R), CVA tenderness (L) - Neurological Exam Neurological exam: Present: alert, oriented X3 - Psychiatric Psychiatric exam: Present: normal affect - Skin Skin exam: Present: warm, dry ED Course Vital Signs 01/19/21 01/19/21 08:20 12:39 Temperature 98.7 F 98.4 F Pulse Rate 70 73 Respiratory 20 18 Rate Blood Pressure 113/62 115/64 [Right] O2 Sat by Pulse 100 99 Oximetry - Reevaluation(s) Reevaluation #1: 01/19/21 11:55 Patient resting comfortably in no distress. All findings discussed with patient ED Medical Decision Making - Lab Data Result diagrams: 01/19/21 11:02 01/19/21 11:02 Lab Results 01/19/21 01/19/21 01/19/21 Range/Units 11:02 11:02 11:02 WBC 7.4 (4.5-11.0) K/mm3 RBC 3.91 (3.65-5.03) M/mm3 Hgb 10.8 (10.1-14.3) gm/dl Hct 32.5 (30.3-42.9) % MCV 83 (79-97) fl MCH 28 (28-32) pg MCHC 33 (30-34) % RDW 14.0 (13.2-15.2) % Plt Count 181 (140-440) K/mm3 Sodium 137 (137-145) mmol/L Potassium 4.1 (3.6-5.0) mmol/L Chloride 102.1 (98-107) mmol/L Carbon Dioxide 26 (22-30) mmol/L Anion Gap 13 mmol/L BUN 9 (7-17) mg/dL Creatinine 0.5 L (0.6-1.2) mg/dL Estimated GFR > 60 ml/min BUN/Creatinine Ratio 18 % Glucose 91 (65-100) mg/dL Calcium 9.2 (8.4-10.2) mg/dL HCG, Qual Negative (Negative) Urine Color (Yellow) Urine Turbidity (Clear) Urine pH (5.0-7.0) Ur Specific [place] (1.003-1.030) Urine Protein (Negative) mg/dL Urine Glucose (UA) (Negative) mg/dL Urine Ketones (Negative) mg/dL Urine Blood (Negative) Urine Nitrite (Negative) Urine Bilirubin (Negative) Urine Urobilinogen (<2.0) mg/dL Ur Leukocyte Esterase (Negative) Urine WBC (Auto) (0.0-6.0) /HPF Urine RBC (Auto) (0.0-6.0) /HPF U Epithel Cells (Auto) (0-13.0) /HPF Urine Mucus /HPF Urine HCG, Qual (Negative) 01/19/21 Range/Units Unknown WBC (4.5-11.0) K/mm3 RBC (3.65-5.03) M/mm3 Hgb (10.1-14.3) gm/dl Hct (30.3-42.9) % MCV (79-97) fl MCH (28-32) pg MCHC (30-34) % RDW (13.2-15.2) % Plt Count (140-440) K/mm3 Sodium (137-145) mmol/L Potassium (3.6-5.0) mmol/L Chloride (98-107) mmol/L Carbon Dioxide (22-30) mmol/L Anion Gap mmol/L BUN (7-17) mg/dL Creatinine (0.6-1.2) mg/dL Estimated GFR ml/min BUN/Creatinine Ratio % Glucose (65-100) mg/dL Calcium (8.4-10.2) mg/dL HCG, Qual (Negative) Urine Color Yellow (Yellow) Urine Turbidity Clear (Clear) Urine pH 5.0 (5.0-7.0) Ur Specific [place] 1.028 (1.003-1.030) Urine Protein <15 mg/dl (Negative) mg/dL Urine Glucose (UA) Neg (Negative) mg/dL Urine Ketones Neg (Negative) mg/dL Urine Blood Mod (Negative) Urine Nitrite Neg (Negative) Urine Bilirubin Neg (Negative) Urine Urobilinogen < 2.0 (<2.0) mg/dL Ur Leukocyte Esterase Neg (Negative) Urine WBC (Auto) 1.0 (0.0-6.0) /HPF Urine RBC (Auto) 1.0 (0.0-6.0) /HPF U Epithel Cells (Auto) 4.0 (0-13.0) /HPF Urine Mucus 2+ /HPF Urine HCG, Qual Negative (Negative) - Medical Decision Making 25-year-old female with a history of heavy menstrual bleeding. She started bleeding on Thursday states she passed clots and went through multiple pads. Today she is only gone through 3 pads and the bleeding is much senior inspector. Denies abdominal pain no CVA tenderness. Labs revealed that she is not . H&H within normal limits urine negative for any signs of infection. Plan is for patient to follow-up with PCP or [facility] - Differential Diagnosis Menorrhagia abnormal vaginal bleeding Critical care attestation.: If time is entered above; I have spent that time in minutes in the direct care of this critically ill patient, excluding procedure time. ED Disposition Clinical Impression: Heavy menstrual period Qualifiers: Menorrhagia type: with regular cycle Qualified Code(s): N92.0 - Excessive and frequent menstruation with regular cycle Disposition: DC- TO HOME OR SELFCARE Is pt being admited?: No Does the pt Need Aspirin: No Condition: Stable Instructions: Menorrhagia, Abnormal Uterine Bleeding, [id number] Additional Instructions: Please follow-up with your [employer] SUPERVISOR in 3 to 5 days. Return to the emergency room if you develop severe abdominal pain or increasing bleeding. Referrals: PRIMARY CARE,MD [Primary Care Provider] - 3-5 Days Forms: Work/School Release Form(ED) Time of Disposition: 12:26
[2021-01-19 12:40] VITALS: BP 115/64
== END 2021-01-19 12:40 | disposition home or self-care (01) ==
LOC: ED 08:01
DX: N92.0 Excessive and frequent menstruation with regular cycle (principal); Z79.899 Other long term (current) drug therapy
CPT/HCPCS: 36415; 80048; 81001; 81025; 84703; 85027; 99283

== ENCOUNTER 2021-04-08 20:11 | Emergency (ER) | payer OTHER ==
--- NOTE | 2021-04-08 21:03 | Emergency Department Report ---
ED Female HPI - General Chief complaint: Nausea/Vomiting/Diarrhea Stated complaint: VOMITING X2 WEEKS, WEAKNESS, , CRAMPING Time Seen by Provider: 04/08/21 20:59 Source: patient Mode of arrival: Ambulatory Limitations: No Limitations - History of Present Illness Initial comments: 25 YO COMES TO ER WITH N/V ASSOCIATED WITH HER NO VAG BLEED NO DISCHARGE NO ABD PAIN NO BACK PAIN NO FEVER OR CHILLS AMBULATORY AND NON ILL APPEARING ON EXAM MIS1 INFANT 1 LMP 8-25 EDC 6-4 HAS SEEN OBGYN THIS - Related Data Previous Rx's Medication Instructions Recorded Last Taken Type Amoxicillin [Trimox CAP] 500 mg PO Q8H #30 capsule 04/08/21 Unknown Rx Ondansetron [Zofran Odt] 4 mg PO Q8HR PRN #15 tab.rapdis 04/08/21 Unknown Rx Allergies Allergy/AdvReac Type Severity Reaction Status Date / Time No Known Allergies Allergy Verified 04/08/21 20:57 ED Review of Systems ROS: Stated complaint: VOMITING X2 WEEKS, WEAKNESS, , CRAMPING Other details as noted in HPI Comment: All other systems reviewed and negative ED Past Medical Hx - Past Medical History Previous Medical History?: No Hx Hypertension: No Hx Congestive Heart Failure: No Hx Diabetes: No Hx Deep Vein Thrombosis: No Hx Renal Disease: No Hx Sickle Cell Disease: No Hx Seizures: No Hx Asthma: No Hx COPD: No Hx HIV: No - Surgical History Past Surgical History?: No - Family History Family history: no significant - Social History Smoking Status: Never Smoker Substance Use Type: None - Medications Home Medications: Home Medications Medication Instructions Recorded Confirmed Last Taken Type Amoxicillin [Trimox CAP] 500 mg PO Q8H #30 capsule 04/08/21 Unknown Rx Ondansetron [Zofran Odt] 4 mg PO Q8HR PRN #15 tab.rapdis 04/08/21 Unknown Rx ED Physical Exam - General Limitations: No Limitations General appearance: alert, in no apparent distress - Head Head exam: Present: atraumatic, normocephalic - Eye Eye exam: Present: normal appearance - ENT ENT exam: Present: mucous membranes moist - Neck Neck exam: Present: normal inspection - Respiratory Respiratory exam: Present: normal lung sounds bilaterally. Absent: respiratory distress - Cardiovascular Cardiovascular Exam: Present: regular rate, normal rhythm. Absent: systolic murmur, diastolic murmur, rubs, gallop - GI/Abdominal GI/Abdominal exam: Present: soft, normal bowel sounds - Extremities Exam Extremities exam: Present: normal inspection - Back Exam Back exam: Present: normal inspection - Neurological Exam Neurological exam: Present: alert, oriented X3 - Psychiatric Psychiatric exam: Present: normal affect, normal mood - Skin Skin exam: Present: warm, dry, intact, normal color. Absent: rash ED Course Vital Signs 04/08/21 04/08/21 20:44 21:35 Temperature 98.6 F Pulse Rate 81 Pulse Rate [ 63 Lying] Pulse Rate [ 70 Sitting] Pulse Rate [ 85 Standing] Respiratory 16 Rate Blood Pressure 110/53 Blood Pressure 106/60 [Lying] Blood Pressure 121/68 [Sitting] Blood Pressure 122/73 [Standing] O2 Sat by Pulse 100 Oximetry - Reevaluation(s) Reevaluation #1: 04/08/21 21:03 RX ED Medical Decision Making - Medical Decision Making Lab Results 04/08/21 Range/Units 21:33 Urine Color Nelia (Yellow) Urine Turbidity Cloudy (Clear) Urine pH 5.0 (5.0-7.0) Ur Specific [place] 1.032 H (1.003-1.030) Urine Protein 30 mg/dl (Negative) mg/dL Urine Glucose (UA) Neg (Negative) mg/dL Urine Ketones Neg (Negative) mg/dL Urine Blood Neg (Negative) Urine Nitrite Neg (Negative) Urine Bilirubin Neg (Negative) Urine Urobilinogen 4.0 (<2.0) mg/dL Ur Leukocyte Esterase Lg (Negative) Urine WBC (Auto) 88.0 H (0.0-6.0) /HPF Urine RBC (Auto) 4.0 (0.0-6.0) /HPF U Epithel Cells (Auto) 49.0 H (0-13.0) /HPF Urine Mucus 3+ /HPF Vital Signs 04/08/21 04/08/21 20:44 21:35 Temperature 98.6 F Pulse Rate 81 Pulse Rate [ 63 Lying] Pulse Rate [ 70 Sitting] Pulse Rate [ 85 Standing] Respiratory 16 Rate Blood Pressure 110/53 Blood Pressure 106/60 [Lying] Blood Pressure 121/68 [Sitting] Blood Pressure 122/73 [Standing] O2 Sat by Pulse 100 Oximetry UA NOTED NS/ROCHEPHIN/ZOFRAN URINE CULTURE PENDING PT UNDERSTANDS SHE HAS UTI AND WILL NEED FOLLOW UP WITH OBGYN TO MAKE SURE SHE RESPONDS TO MEDS. SHE HAS NO VAG BLEEDING, DISCHARGE OR PAIN. NO DYSURIA. NO BACK PAIN. NO ABD PAIN. HER ONLY COMPLAINT HAS BEEN VOMITING SHE HAS BEEN GIVEN ZOFRAN IN ER SHE HAS NOT VOMITED ORTHOSTATICS NORMAL NOT DEHYDRATED PT DC HOME WITH DC PLAN OF CARE INCLUDING MEDS AND FOLLOW UP. SHE VERBALIZES UNDERSTANDING OF DC PLAN OF CARE - Differential Diagnosis RO UTI/STI Critical care attestation.: If time is entered above; I have spent that time in minutes in the direct care of this critically ill patient, excluding procedure time. ED Disposition Clinical Impression: Vomiting UTI (urinary tract infection) Qualifiers: Urinary tract infection type: site unspecified Hematuria presence: without hematuria Qualified Code(s): N39.0 - Urinary tract infection, site not specified Qualifiers: Weeks of gestation: 12 weeks Qualified Code(s): Z3A.12 - 12 weeks gestation of Disposition: 01 HOME / SELF CARE / HOMELESS Is pt being admited?: No Does the pt Need Aspirin: No Condition: Stable Instructions: Urinary Tract Infection, Adult Additional Instructions: STAY WELL HYDRATED MED ORDERED TODAY UNTIL GONE ZOFRAN FOR NAUSEA SEE OBGYN FOR FOLLOW UP LET THEM KNOW YOU WERE HERE FOR URINARY TRACT INFECTION TYLENOL FOR PAIN Prescriptions: Amoxicillin [Trimox CAP] 500 mg PO Q8H #30 capsule Ondansetron [Zofran Odt] 4 mg PO Q8HR PRN #15 tab.rapdis PRN Reason: Vomiting Referrals: VICK LOPEZ MD [Staff Physician] - 3-5 Days Time of Disposition: 22:29
[2021-04-08 21:41] VITALS: BP 106/60
[2021-04-08 21:46] LABS: Bilirubin,Urine NEG (Negative); Blood,Urine NEG (Negative); Color,Urine Amber (Yellow); Mucus,Urine 3+ /HPF
[2021-04-08] MEDS: ONDANSETRON 4 MG ODT TAB PO ONE ×2 (21:50→21:52)
[2021-04-08] MEDS ORDERED: SODIUM CHLORIDE 0.9% 1000 ML 1,000 ML IV ONE (21:51)
[2021-04-08] MEDS ORDERED: cefTRIAXone/NS 1 GM/50 ML 1 GM/50 ML BAG IV ONE (21:51)
[2021-04-08] MEDS ORDERED: ACETAMINOPHEN 500 MG TAB PO ONE (22:15)
== END 2021-04-09 00:48 | disposition home or self-care (01) ==
LOC: ED 20:11
DX: O21.9 Vomiting of pregnancy, unspecified (principal); O23.41 Unspecified infection of urinary tract in pregnancy, first trimester; Z3A.12 12 weeks gestation of pregnancy
CPT/HCPCS: 81001; 87086; 96365; 99283; J0696; J7030; Q0162

== ENCOUNTER 2021-08-12 10:05 | Outpatient (CLI) | payer OTHER ==
[2021-08-12] MEDS ORDERED: LACTATED RINGERS 1,000 ML IV ONE (10:16)
[2021-08-12 11:51] VITALS: BP 100/51
[2021-08-12 18:51] LABS: Bilirubin,Urine Negative (Negative); Blood,Urine Negative (Negative); Color,Urine Yellow (Yellow)
[2021-08-12 18:52] LABS: Protein,Urine <15 mg/dL mg/dL (Negative); RBC,Urine < 1.0 /HPF (0.0-6.0); WBC,Urine < 1.0 /HPF (0.0-6.0)
--- NOTE | 2021-08-12 23:52 | Ultrasound Report ---
ULTRASOUND OBSTETRIC INDICATION / CLINICAL INFORMATION: unable to see cervic. Clinical Gestational Age (GA) in weeks, days: 26, 3 TECHNIQUE: Transabdominal and Transvaginal. COMPARISON: None available. FINDINGS: Single intrauterine . Biparietal Diameter = 5.9 cm = 24, 0 weeks, days Head Circumference = 22.8 cm = 24, 6 weeks, days Abdominal Circumference = 21.4 cm = 25, 6 weeks, days Femur Length = 4.6 cm = 25, 2 weeks, days Average Ultrasound Age (AUA) = 25, 0 weeks, days Heart Rate: 154 beats per minute. Estimated Weight in grams (if calculated): 808 Estimated Weight Growth Percentile (if calculated): 9 Position: transverse. Cervix: closed. Length in cm (if measured): 3.1 Placenta: posterofundal and free of the os. Grade 0 placenta. Amniotic Fluid Volume: normal Amniotic Fluid Index (ZOE) in cm (if calculated): 17.9. Maternal Adnexa: No significant abnormality. IMPRESSION: 1. Single, living intrauterine with estimated sonographic age of 25, 0 weeks, days. 2. No significant sonographic abnormality. Signer Name: Memo Garcia DO Signed: 08/12/2021 1:03 PM Workstation Name: [email or web address]
== END 2021-08-12 14:21 | disposition home or self-care (01) ==
LOC: TRG 10:05 → APU 10:06 → TRG 14:21
PROVIDERS: ATTEND Obstetrics & Gynecology
DX: O26.852 Spotting complicating pregnancy, second trimester (principal); Z3A.24 24 weeks gestation of pregnancy
CPT/HCPCS: 59025; 76816; 76817; 81001

== ENCOUNTER 2021-10-21 10:49 | Outpatient (CLI) | payer OTHER ==
[2021-10-21 11:18] VITALS: BP 112/60
[2021-10-21 13:00] LABS: Bilirubin,Urine NEG (Negative); Blood,Urine NEG (Negative); Color,Urine Straw (Yellow); Mucus,Urine FEW /HPF; Protein,Urine <15 mg/dL mg/dL (Negative); Urobilinogen,Urine < 2.0 mg/dL (<2.0)
--- NOTE | 2021-10-21 13:32 | Ultrasound Report ---
ULTRASOUND OBSTETRIC LIMITED ULTRASOUND BIOPHYSICAL PROFILE INDICATION / CLINICAL INFORMATION: michelle. Clinical Gestational Age (GA): 34.3 weeks.days COMPARISON: None available. FINDINGS: BREATHING MOVEMENT = 2 GROSS BODY MOVEMENT = 2 TONE = 2 QUALITATIVE AMNIOTIC FLUID VOLUME = 2 TOTAL BIOPHYSICAL SCORE = 8/8 HEART RATE (beats per minute): 132 AMNIOTIC FLUID INDEX (cm) = 11.3 (normal = 7-24 cm) PRESENTATION: Cephalic. ADDITIONAL FINDINGS: None. IMPRESSION: 1. Biophysical Score = 8/8 Signer Name: Felix Suarez MD Signed: 10/21/2021 1:28 PM Workstation Name: [id number]
[2021-10-21] MEDS ORDERED: LIDOCAINE-MPF (1%) 10 MG/1 ML VIAL 5 ML INFILTRATI ONE (14:00)
[2021-10-22] MEDS ORDERED: LIDOCAINE-MPF (1%) 10 MG/1 ML VIAL 5 ML INFILTRATI SCH (14:00)
== END 2021-10-21 14:29 | disposition home or self-care (01) ==
LOC: TRG 10:49 → APU 10:51 → TRG 14:29
PROVIDERS: ATTEND Obstetrics & Gynecology
DX: O42.913 Preterm premature rupture of membranes, unspecified as to length of time between rupture and onset of labor, third trimester (principal); O62.9 Abnormality of forces of labor, unspecified; Z3A.34 34 weeks gestation of pregnancy
CPT/HCPCS: 36415; 76815; 76819; 81001; 84112; 96372; J0696; J3490

== ENCOUNTER 2021-10-28 08:50 | Outpatient (CLI) | payer OTHER ==
[2021-10-28 09:28] VITALS: BP 102/60
[2021-10-28] MEDS ORDERED: LACTATED RINGERS 500 ML IV ONE (10:00)
[2021-10-28 10:09] LABS: Bilirubin,Urine NEG (Negative); Blood,Urine NEG (Negative); Color,Urine Yellow (Yellow); Protein,Urine <15 mg/dL mg/dL (Negative); WBC,Urine < 1.0 /HPF (0.0-6.0)
[2021-10-28 10:14] LABS: RBC,Urine < 1.0 /HPF (0.0-6.0)
== END 2021-10-28 10:34 | disposition home or self-care (01) ==
LOC: TRG 08:50 → APU 08:51 → TRG 10:34
PROVIDERS: ATTEND Obstetrics & Gynecology
DX: Z34.93 Encounter for supervision of normal pregnancy, unspecified, third trimester (principal); Z3A.35 35 weeks gestation of pregnancy
CPT/HCPCS: 81001

== ENCOUNTER 2021-11-21 23:33 | Inpatient (IN) | payer OTHER ==
[2021-11-22] MEDS ORDERED: LOPERAMIDE 2 MG CAP PO PRN (02:00)
[2021-11-22] MEDS ORDERED: CARBOPROST TROMETHAMINE 250 MCG/1 ML INJ IM PRN (02:00)
[2021-11-22] MEDS ORDERED: MINERAL OIL 30 ML ORAL LIQD PO PRN (02:00)
[2021-11-22] MEDS ORDERED: LIDOCAINE (2%) 20 MG/1 ML VIAL 20 ML MDV INFILTRATI ONE (02:00)
[2021-11-22] MEDS ORDERED: OXYTOCIN 10 UNIT/1 ML INJ IM PRN (02:00)
[2021-11-22] MEDS ORDERED: LACTATED RINGERS 1,000 ML IV SCH (02:00)
[2021-11-22] MEDS ORDERED: BUTORPHANOL 2 MG/1 ML INJ IV PRN ×2 (02:00)
[2021-11-22] MEDS ORDERED: TERBUTALINE 1 MG/1 ML INJ SUB-Q PRN (02:00)
[2021-11-22] MEDS ORDERED: ePHEDrine SULFATE 50 MG/1 ML INJ IV PRN (02:00)
[2021-11-22] MEDS ORDERED: miSOPROStol 200 MCG TAB PR PRN (02:00)
[2021-11-22] MEDS ORDERED: fentaNYL 100 MCG/2 ML INJ IV PRN (02:00)
[2021-11-22] MEDS ORDERED: AMPICILLIN/NS 2 GM/100 ML 2 GM/100 ML BAG IV ONE (02:00)
[2021-11-22] MEDS ORDERED: ACETAMINOPHEN 325 MG TAB PO PRN ×2 (02:00→09:00)
[2021-11-22] MEDS ORDERED: METHYLERGONOVINE MALEATE 0.2 MG/ML VIAL IM PRN (02:00)
[2021-11-22] MEDS ORDERED: OXYTOCIN DRIP 30 UNITS/500 ML BAG IV SCH ×2 (02:00)
--- NOTE | 2021-11-22 02:22 | Ultrasound Report ---
BIOPHYSICAL PROFILE INDICATION: Decreased movement Single intrauterine is noted in cephalic position. Cardiac activity was documented at 159 b pm. No significant amniotic fluid is seen. breathing movements: 2/2 movements: 2/2 posture and tone tone: 2/2 Qualitative amniotic fluid volume: 0/2 Total score: 6/8 IMPRESSION: Decreased score due to lack of visible amniotic fluid consistent with premature rupture o f membranes Signer Name: Jean Paul Starr MD Signed: 11/22/2021 2:17 AM Workstation Name: [id number]
[2021-11-22 02:41] LABS: Hematocrit 25.9 % (30.3-42.9); Hemoglobin 7.9 gm/dl (10.1-14.3); Mean Corpuscular HGB Conc 30 % (30-34); Platelet Count 234 K/mm3 (140-440); Red Blood Count 3.92 M/mm3 (3.65-5.03)
[2021-11-22 02:48] LABS: Mean Corpuscular Volume 66 fl (79-97)
--- NOTE | 2021-11-22 04:14 | Ultrasound Report ---
LIMITED OBSTETRICAL ULTRASOUND INDICATION: decreased movement COMPARISON: 10/21/2021 FINDINGS: Single intrauterine is again seen in cephalic position. Cardiac activity was docu mented at 162 bpm. Anatomic survey was not performed but no obvious anomaly is seen. Small pockets of amniotic fluid are seen. ZOE was calculated at 7.1 cm which is at the lower margin o f the normal range of 7 cm. Placenta is not well imaged but is free of the internal cervical os. Estimated gestational age is 37 weeks 3 days which is mildly less than the 39 weeks 0 days by clinica l dating. There is a discrepancy between head and body measurements. BPD gives estimated gestational age of 40 weeks 1 day and head circumference gives estimated gestational age of 39 weeks 3 days but a bdominal circumference gives age of 36 weeks 0 days and femur length gives age of 34 weeks 2 days. Es timated weight is 2907 g +/- 430 g in the 11th percentile. IMPRESSION: 1. Amniotic fluid volume at the lower margin of the normal range 2. Head and body dating discrepancy as above 3. Low estimated weight Signer Name: Jean Paul Starr MD Signed: 11/22/2021 4:10 AM Workstation Name: [id number]
[2021-11-22] MEDS ORDERED: AMPICILLIN/NS 1 GM/50 ML 1 GM/50 ML BAG IV SCH (06:00)
--- NOTE | 2021-11-22 08:35 | History and Physical Report ---
History of Present Illness Date of examination: 11/22/21 Date of admission: 11/22/21 02:03 Chief complaint: Decreased movements. History of present illness: 39 weeks, . Anemia. FAITH 11/29/21. Past History Past Medical History: no pertinent history Past Surgical History: no surgical history - Obstetrical History Expected Date of Delivery: 11/29/21 Actual Gestation: 39 Week(s) 0 Day(s) : 4 Para: 2 Hx # Term Pregnancies: 2 Spontaneous Abortions: 1 Medications and Allergies Allergies Allergy/AdvReac Type Severity Reaction Status Date / Time No Known Allergies Allergy Verified 11/22/21 03:05 Home Medications Medication Instructions Recorded Confirmed Last Taken Type Amoxicillin [Trimox CAP] 500 mg PO Q8H #30 capsule 04/08/21 Unknown Rx Ondansetron [Zofran Odt] 4 mg PO Q8HR PRN #15 tab.rapdis 04/08/21 Unknown Rx Active Meds: Active Medications Acetaminophen (Acetaminophen 325 Mg Tab) 650 mg PO Q4H PRN PRN Reason: Pain, Mild (1-3) Last Admin: 11/22/21 08:26 Dose: 650 mg Acetaminophen (Acetaminophen 325 Mg Tab) 650 mg PO Q4H PRN PRN Reason: Pain MILD(1-3)/Fever >100.5/CALERO Hydrocodone Bitart/Acetaminophen (Hydrocodone/Acetaminophen 5-325 Mg Tab) 2 each PO Q6H PRN PRN Reason: Pain, Moderate (4-6) Bisacodyl (Bisacodyl 10 Mg Rect Supp) 10 mg AL BID PRN PRN Reason: Constipation Butorphanol Tartrate (Butorphanol 2 Mg/1 Ml Inj) 1 mg IV Q2H PRN PRN Reason: Pain, Moderate(4-6) LABOR PAIN Butorphanol Tartrate (Butorphanol 2 Mg/1 Ml Inj) 2 mg IV Q2H PRN PRN Reason: Pain , Severe (7-10) Carboprost Tromethamine (Carboprost Tromethamine 250 Mcg/1 Ml Inj) 250 mcg IM ONCE PRN PRN Reason: Uterine Bleeding Diphenhydramine HCl (Diphenhydramine 25 Mg Cap) 25 mg PO Q6H PRN PRN Reason: Itching Ephedrine Sulfate (Ephedrine Sulfate 50 Mg/1 Ml Inj) 10 mg IV Q2M PRN PRN Reason: Hypotension Fentanyl (Fentanyl 100 Mcg/2 Ml Inj) 100 mcg IV Q2H PRN PRN Reason: Pain,Severe (7-10) LABOR PAIN Oxytocin/Sodium Chloride (Pitocin/Ns 30 Unit/500ml) 30 units in 500 mls @ 2 mls/hr IV TITR JUANCHO; Protocol Last Titration: 11/22/21 05:37 Dose: 4 mls/hr, 4 mls/hr Lactated Ringer's (Lactated Ringers) 1,000 mls @ 125 mls/hr IV DIRECT JUANCHO Last Admin: 11/22/21 03:15 Dose: 125 mls/hr Oxytocin/Sodium Chloride (Pitocin/Ns 30 Unit/500ml) 30 units in 500 mls @ 40 mls/hr IV TITR JUANCHO; Protocol Ampicillin Sodium (Ampicillin/Ns 1 Gm/50 Ml) 1 gm in 50 mls @ 100 mls/hr IV Q4H JUANCHO; Protocol Ketorolac Tromethamine (Ketorolac 30 Mg/1 Ml Inj) 30 mg IV Q6H PRN PRN Reason: Pain, Moderate (4-6) Stop: 11/27/21 08:25 Loperamide HCl (Loperamide 2 Mg Cap) 2 mg PO ONCE PRN PRN Reason: give with Hemabate Magnesium Hydroxide (Magnesium Hydroxide (Mom) Oral Liqd Udc) 30 ml PO HS PRN PRN Reason: Constipation Methylergonovine Maleate (Methylergonovine Maleate 0.2 Mg/Ml Vial) 0.2 mg IM ON CE PRN PRN Reason: Uterine Bleeding Mineral Oil (Mineral Oil 30 Ml Oral Liqd) 30 ml PO QHS PRN PRN Reason: Constipation Misoprostol (Misoprostol 200 Mcg Tab) 800 mcg AL ONCE PRN PRN Reason: Uterine Bleeding Multi-Ingredient Ointment (Lanolin/Zinc/Dimethicone (Lansinoh) 7 Gm) 1 applic TP PRN PRN PRN Reason: Sore Nipples Ondansetron HCl (Ondansetron 4 Mg/2 Ml Inj) 4 mg IV Q8H PRN PRN Reason: Nausea And Vomiting Promethazine HCl (Promethazine 25 Mg Rect Supp) 25 mg AL Q6H PRN PRN Reason: Nausea And Vomiting Promethazine HCl (Promethazine 25 Mg Tab) 25 mg PO Q6H PRN PRN Reason: Nausea And Vomiting Sodium Chloride (Sodium Chloride 0.9% 10 Ml Flush Syringe) 10 ml IV PRN NR Terbutaline Sulfate (Terbutaline 1 Mg/1 Ml Inj) 0.25 mg SUB-Q ONCE PRN PRN Reason: Hyperstimulation/Hypertonicity Witch Michelle/Glycerin (Witch Michelle/ Glycerin Pad) 1 each TP PRN PRN PRN Reason: Hemorrhoid/cleansing/soothing Review of Systems All systems: negative Genitourinary: other (Decreased movements.) - Vital Signs Vital signs: Vital Signs Pulse BP Pulse Ox 77 118/59 99 11/22/21 00:40 11/22/21 00:40 11/22/21 00:40 Temp Pulse Resp BP Pulse Ox 98.4 F 78 19 111/54 99 11/22/21 07:26 11/22/21 08:30 11/22/21 07:26 11/22/21 08:24 11/22/21 08:30 - Physical Exam Breasts: Positive: deferred Cardiovascular: Normal S1, Normal S2 Lungs: Positive: Normal air movement Abdomen: Positive: normal appearance, soft, distention, normal bowel sounds. Negative: tenderness Genitourinary (Female): Positive: normal external genitalia, normal perenium Vulva: both: normal Vagina: Positive: normal moisture Cervix: Negative: lesion, discharge Uterus: Positive: enlarged, normal contour Anus/Rectum: Positive: normal perianal skin, heme negative. Negative: rectal mass, hemorrhoids Extremities: Deep Tendon Reflex Grade: Normal +2 - Obstetrical FHR: category 2 Uterine Contraction Monitor Mode: Internal Cervical Dilatation: 6 (ARM done; clear fluid.) Cervical Effacement Percentage: 100 station: 0 Uterine Contraction Pattern: Irregular Uterine Contraction Intensity: Moderate Results Result Diagrams: 11/22/21 02:20 Abnormal lab results 11/22/21 Range/Units 02:20 Hgb 7.9 L (10.1-14.3) gm/dl Hct 25.9 L (30.3-42.9) % MCV 66 L (79-97) fl MCH 20 L (28-32) pg RDW 18.0 H (13.2-15.2) % All other labs normal. Assessment and Plan - Patient Problems (1) with 39 completed weeks gestation Current Visit: Yes Status: Acute (2) Decreased movement affecting management of mother, antepartum Current Visit: Yes Status: Acute Qualifiers: Fetus number: single or unspecified fetus Qualified Code(s): O36.8190 - Decreased movements, unspecified trimester, not applicable or unspecified Plan to address problem: For induction/delivery.
--- NOTE | 2021-11-22 08:44 | Procedure Note ---
OB Delivery Note - Delivery Date of Delivery: 11/22/21 Surgeon: ADE CARDOSO - Vaginal Delivery presentation: vertex Delivery position: OA Intrapartum events: none, decreased FHT variability Delivery induction: oxytocin Delivery augmentation: rupture of membranes, pitocin Delivery monitor: external FHT, external uterine, internal uterine Route of delivery: Delivery placenta: spontaneous, expressed Delivery cord: 3 umbilical vessels Episiotomy: none Delivery laceration: none Anesthesia: none - A at 1 minute: 8 at 5 minutes: 9 Gender: Male (7lbs 9oz.)
[2021-11-22] MEDS ORDERED: KETOROLAC 30 MG/1 ML INJ IV PRN (09:00)
[2021-11-22] MEDS ORDERED: PROMETHAZINE 25 MG TAB PO PRN (09:00)
[2021-11-22] MEDS ORDERED: LANOLIN/ZINC/DIMETHICONE (LANSINOH) 7 GM TP PRN (09:00)
[2021-11-22] MEDS ORDERED: ONDANSETRON 4 MG/2 ML INJ IV PRN (09:00)
[2021-11-22] MEDS ORDERED: diphenhydrAMINE 25 MG CAP PO PRN (09:00)
[2021-11-22] MEDS ORDERED: PROMETHAZINE 25 MG RECT SUPP PR PRN (09:00)
[2021-11-22] MEDS ORDERED: WITCH HAZEL/ GLYCERIN PAD TP PRN (10:00)
[2021-11-22] MEDS ORDERED: IBUPROFEN 800 MG TAB PO PRN (13:27)
[2021-11-22] MEDS: BENZOCAINE/MENTHOL 20/0.5% TOP SPRAY 56 GM TP PRN (16:41)
[2021-11-22] MEDS: HYDROcodone/ACETAMINOPHEN 5-325 MG TAB PO PRN (19:34)
[2021-11-22 20:59] LABS: Hematocrit 23.5 % (30.3-42.9)
[2021-11-22] MEDS ORDERED: MAGNESIUM HYDROXIDE (MOM) ORAL LIQD UDC PO PRN (22:00)
[2021-11-23] MEDS: HYDROcodone/ACETAMINOPHEN 5-325 MG TAB PO PRN ×2 (02:04→09:05)
--- NOTE | 2021-11-23 05:54 | Progress Note ---
Assessment and Plan - Patient Problems (1) with 39 completed weeks gestation Current Visit: Yes Status: Resolved (2) Decreased movement affecting management of mother, antepartum Current Visit: Yes Status: Resolved Qualifiers: Fetus number: single or unspecified fetus Qualified Code(s): O36.8190 - Decreased movements, unspecified trimester, not applicable or unspecified (3) Status post vaginal delivery Current Visit: Yes Status: Acute Plan to address problem: Stable. Subjective - Subjective Date of service: 11/23/21 Principal diagnosis: Status post day 1. Interval history: 39 weeks, . Anemia. FAITH 11/29/21. 11/22/21. No complaints. Patient reports: appetite normal, voiding normally, pain well controlled, ambulating normally [place]: doing well Objective - Vital Signs Latest vital signs: Vital Signs Temp Pulse Resp BP BP Pulse Ox Pulse Ox 11/23/21 05:43 98 11/23/21 03:00 98 11/23/21 02:00 98 11/23/21 00:41 98.2 F 74 20 106/57 96 11/22/21 23:55 98 11/22/21 19:49 100 11/22/21 17:10 97.6 F 72 18 111/53 100 11/22/21 13:20 97.7 F 83 18 96/42 98 11/22/21 10:39 100 11/22/21 10:05 97.5 F L 78 16 104/59 100 11/22/21 09:30 65 99 11/22/21 09:25 67 99 11/22/21 09:21 67 113/61 11/22/21 09:20 67 99 11/22/21 09:15 68 99 11/22/21 09:10 69 100 11/22/21 09:06 67 112/64 11/22/21 09:05 70 100 11/22/21 09:00 71 100 11/22/21 08:55 74 100 11/22/21 08:51 68 107/58 11/22/21 08:50 70 99 11/22/21 08:45 74 100 11/22/21 08:40 76 100 11/22/21 08:36 71 109/59 11/22/21 08:35 76 100 11/22/21 08:30 78 99 11/22/21 08:25 76 99 11/22/21 08:24 74 111/54 11/22/21 08:20 80 99 11/22/21 08:15 76 99 11/22/21 08:10 79 99 11/22/21 08:07 75 120/59 11/22/21 08:05 78 99 11/22/21 08:00 89 99 11/22/21 07:55 89 100 11/22/21 07:50 119 H 99 11/22/21 07:45 76 100 11/22/21 07:40 83 100 11/22/21 07:37 88 107/60 11/22/21 07:35 84 100 11/22/21 07:30 90 100 11/22/21 07:26 98.4 F 19 11/22/21 07:25 80 100 11/22/21 07:20 78 100 11/22/21 07:15 70 100 11/22/21 07:10 82 98 11/22/21 07:05 77 100 11/22/21 07:00 69 100 11/22/21 06:55 72 100 11/22/21 06:50 73 99 11/22/21 06:45 71 99 11/22/21 06:40 71 98 11/22/21 06:35 76 99 11/22/21 06:30 68 98 11/22/21 06:25 68 98 11/22/21 06:20 79 98 11/22/21 06:15 69 98 11/22/21 06:10 62 98 11/22/21 06:05 77 99 11/22/21 06:00 73 98 11/22/21 05:55 74 100 Intake and Output 11/22/21 11/22/21 11/23/21 15:59 23:59 07:59 Output Total 200 Balance -200 Output: Urine 200 Void 200 Other: Total, Output Amount 200 # Voids Void 1 1 Estimated Blood Loss 150 - Exam Lungs: Present: Normal air movement Abdomen: Present: normal appearance Uterus: Present: normal, firm Extremities: Present: normal Deep Tendon Reflex Grade: Normal +2 - Labs Labs: Abnormal lab results 11/22/21 Range/Units 20:37 Hgb 7.0 L (10.1-14.3) gm/dl Hct 23.5 L (30.3-42.9) %
--- NOTE | 2021-11-23 05:56 | Discharge Summary ---
Providers - Providers Date of Admission: 11/22/21 08:26 Date of discharge: 11/23/21 Attending physician: ADE CARDOSO MD Primary care physician: ADE CARDOSO MD Hospitalization Reason for admission: observation, induction of labor, IUP at term, other (Decreased movt.) Delivery: Episiotomy: none Laceration: none Other procedures: none complications: none Discharge diagnosis: IUP at term delivered [place] baby: male Condition at discharge: Good Disposition: 01 HOME / SELF CARE / HOMELESS - Discharge Diagnoses (1) with 39 completed weeks gestation Status: Resolved (2) Decreased movement affecting management of mother, antepartum Status: Resolved Qualifiers: Fetus number: single or unspecified fetus Qualified Code(s): O36.8190 - Decreased movements, unspecified trimester, not applicable or unspecified (3) Status post vaginal delivery Status: Acute Plan - Provider Discharge Summary Activity: routine, no sex for 6 weeks, no heavy lifting 4 weeks, no strenuous exercise Diet: routine Instructions: routine Additional instructions: [] Smoking cessation referral if applicable(refer to patient education folder for contact #) [] Refer to [facility]'s [facility] Booklet Call your doctor immediately for: * Fever > 100.5 * Heavy vaginal bleeding ( >1 pad per hour) * Severe persistent headache * Shortness of breath * Reddened, hot, painful area to leg or breast * Drainage or odor from incision. * Keep incision clean and dry at all times and follow doctor's instructions regarding bathing/showering - Follow up plan Follow up: ADE CARDOSO MD [Primary Care Provider] - 7 Days
[2021-11-23] MEDS: BENZOCAINE/MENTHOL 20/0.5% TOP SPRAY 56 GM TP PRN (09:07)
[2021-11-23 14:39] VITALS: BP 114/63
== END 2021-11-23 14:58 | disposition home or self-care (01) | DRG 807 ==
LOC: TRG 23:33 → APU 11-22 00:21 → LD 11-22 02:03 → TRG 11-22 07:42 → OBSVTOIN 11-22 08:26 → OB 11-22 09:55
PROVIDERS: ADMIT Obstetrics & Gynecology; ATTEND Obstetrics & Gynecology
PROC: 10E0XZZ Delivery of Products of Conception, External Approach (ICD-10-PCS; principal; 2021-11-22)
PROC: 10907ZC Drainage of Amniotic Fluid, Therapeutic from Products of Conception, Via Natural or Artificial Opening (ICD-10-PCS; 2021-11-22)
DX: O76 Abnormality in fetal heart rate and rhythm complicating labor and delivery (principal); Z37.0 Single live birth; O36.8130 Decreased fetal movements, third trimester, not applicable or unspecified; Z3A.39 39 weeks gestation of pregnancy; Z20.822 Contact with and (suspected) exposure to COVID-19
CPT/HCPCS: 36415; 76816; 76819; 85014; 85018; 85027; 86850; 86900; 86901; G0378; J0290; J1885; J2590; J7120; U0003

== ENCOUNTER 2022-03-10 07:46 | Emergency (ER) | payer OTHER ==
[2022-03-10] MEDS ORDERED: CYCLOBENZAPRINE 10 MG TAB PO ONE (08:23)
[2022-03-10] MEDS ORDERED: KETOROLAC 10 MG TAB PO ONE (08:23)
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
[2022-03-10 10:46] VITALS: BP 128/76
== END 2022-03-10 10:42 | disposition home or self-care (01) ==
LOC: ED 07:46
DX: M54.2 Cervicalgia (principal); M25.561 Pain in right knee; Z79.899 Other long term (current) drug therapy; V89.2XXA Person injured in unspecified motor-vehicle accident, traffic, initial encounter; Y93.89 Activity, other specified; Y92.488 Other paved roadways as the place of occurrence of the external cause; Y99.8 Other external cause status
CPT/HCPCS: 99283